=== PATIENT | female | born 1990 | race Two or more races ===

== ENCOUNTER 2024-05-24 02:10 | Emergency (ER) | payer MEDICAID, SELFPAY ==
[2024-05-24 02:11] VITALS: BMI 24.7
[2024-05-24 02:35] VITALS: BP 126/82; PULSE 95; RESP 16; TEMP 36.8; O2SAT 100
--- NOTE | 2024-05-24 02:50 | PD.EDEYE ---
ED Eye Problem RME/HPI General Chief complaint: Eye Problems Stated complaint: RIGHT EYE REDNESS, FEELS SOMETHING INSIDE EYE Time Seen by Provider: 05/24/24 02:49 Source: patient Arrival date/time: 05/24/24 02:10 33-year-old female presents emergency department complaining of right eye redness and foreign body sensation for over 1 month. Patient reports has been putting [id number] eyedrops to right eye with no improvement. Patient denies any vision changes. He denies any fever, chills, cough, sore throat, shortness of breath, ear pain, or any other associated symptom. Mode of arrival: ambulatory Limitations: no limitations Related Data Home Medications ?Medication ?Instructions ?Recorded ?Confirmed prenat.vits,ama,[id number] 1 tab PO QDAY 07/01/20 07/01/20 Previous Rx's ?Medication ?Instructions ?Recorded docusate sodium 100 mg capsule 100 mg PO BID 30 days 07/03/20 (Colace) #60 caps ibuprofen 600 mg tablet 600 mg PO Q6H PRN fever or pain 30 07/03/20 days #60 tabs naproxen 500 mg tablet 500 mg PO BID PRN pain #30 tabs 12/11/23 ciprofloxacin HCl 0.3 % eye drops See Rx Instructions ophthalmic 03/31/24 (eye) .COMPLEX #10 mL erythromycin 5 mg/gram (0.5 %) eye 0.5 inch ophthalmic (eye) QID 10 05/24/24 ointment days #3.5 grams Allergies Allergy/AdvReac Type Severity Reaction Status Date / Time No Known Allergies Allergy Verified 05/24/24 02:11 Review of Systems Review of Systems Systems Reviewed: All systems reviewed, normal except as documented Constitutional Constitutional: Reports system reviewed and no additional complaints, except as documented, Denies body ache(s), Denies chills and Denies fever(s) Eyes Eyes: Reports system reviewed and no additional complaints, except as documented, Denies change in vision, Reports eye discharge, Reports irritation and Reports itchy eyes ENT Ears, Nose, Mouth, and Throat: Reports system reviewed and no additional complaints, except as documented, Denies disequilibrium, Denies dizziness, Denies sore throat and Denies vertigo Cardiovascular Cardiovascular: Reports system reviewed and no additional complaints, except as documented, Denies chest pain and Denies dyspnea Respiratory Respiratory: Reports system reviewed and no additional complaints, except as documented, Denies chest congestion, Denies cough and Denies dyspnea Gastrointestinal Gastrointestinal: Reports system reviewed and no additional complaints, except as documented, Denies abdominal pain, Denies nausea and Denies vomiting Musculoskeletal Musculoskeletal: Reports system reviewed and no additional complaints, except as documented, Denies abnormal gait and Denies arthralgias Integumentary/Breasts Skin/Breast: Reports system reviewed and no additional complaints, except as documented, Denies erythema, Denies rash and Denies wounds Neurologic Neurologic: Reports system reviewed and no additional complaints, except as documented, Denies abnormal gait, Denies disequilibrium, Denies dizziness and Denies vertigo Allergic/Immunologic Allergic/Immunologic: Reports itchy eyes Past Medical History Past Medical History NEUROLOGIC: Positive Neurological Disorders; Negative Seizures CARDIAC: Negative Cardiac Disorders or Congestive Heart Failure RESPIRATORY: Negative Chronic Obstructive Pulmonary Disease (COPD) or Asthma GASTROINTESTINAL: Negative Gastrointestinal Disorders GENITOURINARY: Negative Genitourinary Disorders or Renal Disease MUSCULOSKELETAL: Positive Musculoskeletal Disorders and Scoliosis ENDOCRINE: Negative Endocrine Disorders, Diabetes Mellitus Type 1 or Diabetes Mellitus Type 2 HEMATOLOGIC: Negative Blood Disorders or Sickle Cell Disease OTHER HISTORY: Positive Hospitalization (PREVIOUS CHILDBIRTH) and Blood Transfusions; Negative Blood Transfusion Reaction or Anesthesia Reactions Family History FAMILY HISTORY: Negative Family Psychiatric Problems, Family Respiratory Disorders, Family Cardiac Disorders or Family Gastrointestinal Problems Surgical History SURGICAL: Positive Section Social History SMOKING STATUS: Never smoker ED Exam General Limitations: Present no limitations General appearance: Present alert and in no apparent distress Head Head exam: Present atraumatic Eye Eye exam: Present normal appearance, PERRL, EOMI, scleral icterus and conjunctival injection Expanded Eye Exam Eyelids: right: swelling eyelids Pupils: Bilateral: regular, round, reactive and size (4) Sclera/Conjunctival: right: injection and exudate ENT ENT exam: Present normal exam, normal oropharynx and mucous membranes moist Neck Neck exam: Present normal inspection, full ROM and trachea midline Chest Chest inspection: Present normal inspection and symmetric chest wall rise Respiratory Respiratory exam: Present normal lung sounds bilaterally Cardiovascular Cardiovascular exam: Present regular rate, normal rhythm and normal heart sounds Abdominal Exam Abdominal exam: Present soft and normal bowel sounds Extremities Exam Extremities exam: Present normal inspection and full ROM Back Exam Back exam: Present normal inspection and full ROM Neurological Exam Neurological exam: Present alert, oriented X3 and CN II-XII intact Psychiatric Psychiatric exam: Present normal affect and normal mood Skin Skin exam: Present warm, dry, intact and normal color Course Quality Measures none Orders Category Date Time Status Bedside COVID-19 Antigen Test NOW Care 05/24/24 02:57 Completed Bedside Influenza A&B Antigen Test NOW Care 05/24/24 02:57 Completed Cancino Lamp to Bedside X1 Care 05/24/24 02:50 Completed Erythromycin Op Oint 0.5% Med 05/24/24 03:42 Discontinued 1 gm RIGHT EYE X1 ONE Fluorescein Sodium [[id number]-[id number]] Med 05/24/24 02:50 Discontinued 1 mg RIGHT EYE X1 ONE TETRACAINE Op Ana 0.5% [Pontocaine Op Ana 0.5%] Med 05/24/24 02:50 Discontinued 1 drop RIGHT EYE X1 ONE Vital Signs Vital signs: Vital Signs Temperature 98.3 F 05/24/24 02:35 Pulse Rate 95 05/24/24 02:35 Respiratory Rate 16 05/24/24 02:35 Blood Pressure 126/82 05/24/24 02:35 Pulse Oximetry (%) 100 05/24/24 02:35 Oxygen Delivery Method Room Air 05/24/24 02:35 100% room air within normal limits Procedures -ED Cancino Lamp Exam Right eye: Flourescein uptake:: Yes Cancino Lamp Findings: Corneal abrasion Eye MDM Narrative MDM Narrative:: 33-year-old female presents emergency department complaining of right eye redness and foreign body sensation for over 1 month. Patient reports has been putting [id number] eyedrops to right eye with no improvement. Patient denies any vision changes. He denies any fever, chills, cough, sore throat, shortness of breath, ear pain, or any other associated symptom. On exam right eye sclera is injected with yellow-colored drainage on lower eyelid. Cancino lamp exam no obvious foreign body seen but corneal abrasion observed. Patient reports no change in vision but does complain about itchiness and irritation. Patient discharged on erythromycin ointment. Instructed patient to have close follow-up with preschool assistant teacher in 24 to 48 hours. Instructed to also follow-up with primary care provider and return to emergency department immediately if any change in vision or worsening symptoms. Patient data External records reviewed:: [facility] previous records Clinical information provided by:: patient Social determinants that could affect healthcare access:: none Patient has the following chronic illnesses:: N/A How is presenting disease/condition affected by chronic disease/condition?: no chronic disease Evaluation data The following diagnostics were reviewed and interpreted by me:: lab results Lab and/or radiology exams considered but not ordered:: Ordered Interpretation Summary: Interpreted by me Medications / Prescriptions Medications or Prescriptions considered but not ordered:: Ordered Medication administrations:: Medication Administration History Discontinued Medications Erythromycin (Erythromycin Op Oint 0.5% 1 Gm Packet) 1 gm RIGHT EYE X1 ONE Stop: 05/24/24 03:43 Last Admin: 05/24/24 04:00 Dose: 1 gm Documented By: BRAYDEN Co-signed By: VAL Fluorescein Sodium (Fluorescein Sod 1 Mg Strp) 1 mg RIGHT EYE X1 ONE Stop: 05/24/24 02:51 Last Admin: 05/24/24 03:02 Dose: 1 mg Documented By: BRAYDEN Tetracaine HCl (Tetracaine Pf Op Ana 0.5% 4 Ml Drpette) 1 drop RIGHT EYE X1 ONE Stop: 05/24/24 02:51 Last Admin: 05/24/24 03:02 Dose: 1 drop Documented By: BRAYDEN Comments: GIVEN TO MEÑO KIDD FOR ADMINISTRATION Given Consultations Consultation(s) initiated? (list below): No Diagnosis Eye Problem Differential Diagnosis: corneal abrasion, conjunctivitis, acute iritis, periorbital cellulitis and corneal ulcer Most likely diagnosis given after review of the tests above:: Corneal abrasion Admission Indicated Admission indicated?: not indicated Admission Request Was there a request for admission?: No Disposition Plan Disposition Plan: Discharge Discharge Attestation Discharge Attestation: The patient and all family members were given an opportunity to ask questions and understood the discharge instructions. Discharge instructions specifically effects, indications for sooner follow up or return to the emergency department, and the expected course of current diagnosis. Patient condition: Stable Discharge Plan Plan Patient Disposition: HOME (Self Care) Disposition Comment: Stable Prescriptions/Referrals Prescriptions/Med Rec: New erythromycin 5 mg/gram (0.5 %) ointment 0.5 inch ophthalmic (eye) QID 10 Days Qty: 3.5 0RF No Action prenat.vits,ama,[id number]-[id number] Tablet 1 tab PO QDAY ibuprofen 600 mg tablet 600 mg PO Q6H MDD 4 PRN (Reason: fever or pain) 30 Days Qty: 60 1RF docusate sodium [Colace] 100 mg capsule 100 mg PO BID MDD 2 30 Days Qty: 60 1RF ciprofloxacin HCl 0.3 % drops See Rx Instructions .ROUTE .COMPLEX Qty: 10 0RF Rx Instructions: put 1-2 drps in affected eye(s) every 2hr up to 8 times/day x2days; then 4 times/day x5days naproxen 500 mg tablet 500 mg PO BID PRN (Reason: pain) Qty: 30 0RF Problem List Clinical Impression: Corneal abrasion, right Patient/Caregiver Discharge Instructions Education Materials: ED Corneal Abrasion Additional Instructions: Apply medication as prescribed. Follow-up with preschool assistant teacher in 24 to 48 hours. Follow-up with primary care provider upon discharge. Return to the emergency department for any worsening symptoms or as needed. Print Language: Togolese Stand Alone Forms: Mary Award Info., Patient Portal Info Letter Attestation Attestation The patient was seen by the midlevel practitioner. I, the co-signing physician, was present during the entire ER visit. While I did not physically examine the patient, I was available for consultation as needed.
[2024-05-24] MEDS: FLUORESCEIN SOD 1 MG STRP RIGHT EYE (03:02)
[2024-05-24] MEDS: TETRACAINE PF OP SOL 0.5% 4 ML DRPETTE 1 DROP RIGHT EYE (03:02)
[2024-05-24] MEDS: Erythromycin Op Oint 0.5% 1 GM PACKET RIGHT EYE (04:00)
== END 2024-05-24 04:05 | disposition home or self-care (01) ==
LOC: SERX 04:10
PROVIDERS: Emergency Provider Emergency Medicine; PCP Family Medicine
DX: S05.01XA Injury of conjunctiva and corneal abrasion without foreign body, right eye, initial encounter (principal); X58.XXXA Exposure to other specified factors, initial encounter
CPT/HCPCS: 87400; 87811; 99283; A9270

== ENCOUNTER 2024-08-09 11:42 | Emergency (ER) | payer MEDICAID, SELFPAY ==
--- NOTE | 2024-08-09 12:39 | PC.NURSE ---
CALLED PT BACK, NO ANSWER AT THIS TIME
--- NOTE | 2024-08-09 13:05 | PC.NURSE ---
CALLED PT BACK, NO ANSWER AT THIS TIME
--- NOTE | 2024-08-09 14:04 | PC.NURSE ---
no answer when called for vital signs
== END 2024-08-09 15:24 | disposition left against medical advice (07) ==
PROVIDERS: Emergency Provider Emergency Medicine
DX: Z53.21 Procedure and treatment not carried out due to patient leaving prior to being seen by health care provider (principal)
CPT/HCPCS: 99281; 99283

== ENCOUNTER 2024-08-11 17:48 | Emergency (ER) | payer MEDICAID, SELFPAY ==
[2024-08-11 18:05] VITALS: BP 120/83; PULSE 87; RESP 16; TEMP 36.8; O2SAT 99; BMI 22.3
--- NOTE | 2024-08-11 18:19 | EDNOTE_ITS ---
ED Wound/Laceration-RME/HPI General Chief Complaint: Wound Recheck / Suture Removal Stated Complaint: REMOVE PACKING FROM RIGHT ARMPIT WOUND Time Seen by Provider: 08/11/24 18:17 Arrival date/time: 08/11/24 17:48 34F with no significant PMH presents to ED with needing to get packing removed s/p abscess I&D 2 days ago. Patient has been taking her ABX. Limitations: no limitations Related Data Home Medications ?Medication ?Instructions ?Recorded ?Confirmed prenat.vits,ama,xks-[id number]-tkbij 1 tab PO QDAY 07/01/20 07/01/20 Previous Rx's ?Medication ?Instructions ?Recorded docusate sodium 100 mg capsule 100 mg PO BID postpartu m 30 days 07/03/20 (Colace) #60 caps ibuprofen 600 mg tablet 600 mg PO Q6H PRN fever or p ain 30 07/03/20 days #60 tabs naproxen 500 mg tablet 500 mg PO BID PRN pain #30 t abs 12/11/23 ciprofloxacin HCl 0.3 % eye drops See Rx Instructions ophthalmic 03/31/24 (eye) .COMPLEX #10 mL sulfamethoxazole 800 1 tab PO BID 7 days #14 tabs 08/09/24 mg-trimethoprim 160 mg tablet (Bactrim DS) Allergies Allergy/AdvReac Type Severity Reaction Status Date / Time No Known Allergies Allergy Verified 08/11/24 17:49 Review of Systems Review of Systems Systems Reviewed: All systems reviewed, normal except as documented Constitutional Constitutional: Reports system reviewed and no additional complaints, except as documented, Denies fever(s) and Denies headache(s) ENT Ears, Nose, Mouth, and Throat: Denies disequilibrium and Denies headache(s) Cardiovascular Cardiovascular: Reports system reviewed and no additional complaints, except as documented, Denies chest pain and Denies dyspnea Respiratory Respiratory: Reports system reviewed and no additional complaints, except as documented, Denies cough and Denies dyspnea Gastrointestinal Gastrointestinal: Reports system reviewed and no additional complaints, except as documented, Denies abdominal pain, Denies nausea and Denies vomiting Neurologic Neurologic: Reports system reviewed and no additional complaints, except as documented, Denies confusion, Denies disequilibrium and Denies headache(s) Psychiatric Psychiatric: Denies confusion Past Medical History Past Medical History NEUROLOGIC: Positive Neurological Disorders; Negative Seizures CARDIAC: Negative Cardiac Disorders or Congestive Heart Failure RESPIRATORY: Negative Chronic Obstructive Pulmonary Disease (COPD) or Asthma GASTROINTESTINAL: Negative Gastrointestinal Disorders GENITOURINARY: Negative Genitourinary Disorders or Renal Disease MUSCULOSKELETAL: Positive Musculoskeletal Disorders and Scoliosis ENDOCRINE: Negative Endocrine Disorders, Diabetes Mellitus Type 1 or Diabetes Mellitus Type 2 HEMATOLOGIC: Negative Blood Disorders or Sickle Cell Disease OTHER HISTORY: Positive Hospitalization (PREVIOUS CHILDBIRTH) and Blood Transfusions; Negative Blood Transfusion Reaction or Anesthesia Reactions Family History FAMILY HISTORY: Negative Family Psychiatric Problems, Family Respiratory Disorders, Family Cardiac Disorders or Family Gastrointestinal Problems Surgical History SURGICAL: Positive Section Social History SMOKING STATUS: Never smoker ED Exam General Limitations: Present no limitations General appearance: Present alert and in no apparent distress Head Head exam: Present atraumatic Eye Eye exam: Present normal appearance, PERRL and EOMI ENT ENT exam: Present normal exam, normal oropharynx and mucous membranes moist Neck Neck exam: Present normal inspection, full ROM and trachea midline Chest Chest inspection: Present normal inspection and symmetric chest wall rise Respiratory Respiratory exam: Present normal lung sounds bilaterally Cardiovascular Cardiovascular exam: Present regular rate, normal rhythm and normal heart sounds Abdominal Exam Abdominal exam: Present soft and normal bowel sounds Extremities Exam Extremities exam: Present full ROM Expanded Upper Extremity Exam Shoulder exam: Present other (R armpit open wound from I&D) Back Exam Back exam: Present normal inspection and full ROM Neurological Exam Neurological exam: Present alert, oriented X3 and CN II-XII intact Psychiatric Psychiatric exam: Present normal affect and normal mood Skin Skin exam: Present warm, dry, intact and normal color Course Quality Measures none Orders Category Date Time Status Wound Care NOW Care 08/11/24 18:17 Active Vital Signs Vital signs: Vital Signs Temperature 98.2 F 08/11/24 18:05 Pulse Rate 87 08/11/24 18:05 Respiratory Rate 16 08/11/24 18:05 Blood Pressure 120/83 08/11/24 18:05 Pulse Oximetry (%) 99 08/11/24 18:05 Oxygen Delivery Method Room Air 08/11/24 18:05 O2 at 99% on RA and WNLs Wound / Laceration MDM Narrative MDM Narrative:: 34F with no significant PMH presents to ED with needing to get packing removed s/p abscess I&D 2 days ago. Patient has been taking her ABX. Physical exam reveals open wound from I&D on R armpit area with only minor discharge. No additional discharge with expression. Patient is afebrile, calm, and alert. Packing removed. Wound cleaned and re-bandaged. Counseled to finish ABX. Patient data External records reviewed:: [facility] previous records Clinical information provided by:: patient Social determinants that could affect healthcare access:: none Patient has the following chronic illnesses:: none How is presenting disease/condition affected by chronic disease/condition?: no chronic disease Evaluation data The following diagnostics were reviewed and interpreted by me:: other (specify) (none) Lab and/or radiology exams considered but not ordered:: not ordered Interpretation Summary: n/a Medications / Prescriptions Medications or Prescriptions considered but not ordered:: not ordered Medication administrations:: n/a Consultations Consultation(s) initiated? (list below): No Diagnosis Wound Differential Diagnosis: laceration, abscess, abrasion, avulsion of skin and other (wound check) Most likely diagnosis given after review of the tests above:: wound check Admission Indicated Admission indicated?: not indicated Admission Request Was there a request for admission?: No Disposition Plan Disposition Plan: Discharge Discharge Attestation Discharge Attestation: The patient and all family members were given an opportunity to ask questions and understood the discharge instructions. Discharge instructions specifically effects, indications for sooner follow up or return to the emergency department, and the expected course of current diagnosis. Patient condition: Stable Discharge Plan Plan Patient Disposition: HOME (Self Care) Disposition Comment: Stable Prescriptions/Referrals Prescriptions/Med Rec: No Action prenat.vits,ama,[id number]-gbfio Tablet 1 tab PO QDAY ibuprofen 600 mg tablet 600 mg PO Q6H MDD 4 PRN (Reason: fever or pain) 30 Days Qty: 60 1RF docusate sodium [Colace] 100 mg capsule 100 mg PO BID MDD 2 30 Days Qty: 60 1RF ciprofloxacin HCl 0.3 % drops See Rx Instructions .ROUTE .COMPLEX Qty: 10 0RF Rx Instructions: put 1-2 drps in affected eye(s) every 2hr up to 8 times/day x2days; then 4 times/day x5days naproxen 500 mg tablet 500 mg PO BID PRN (Reason: pain) Qty: 30 0RF sulfamethoxazole-trimethoprim [Bactrim DS] 800-160 mg tablet 1 tab PO BID 7 Days Qty: 14 0RF Problem List Clinical Impression: Wound check, abscess Patient/Caregiver Discharge Instructions Education Materials: ED Wound Care Additional Instructions: Please follow-up with PCP within 24-48 hours and return immediately if symptoms worsen. Print Language: Bolivian Stand Alone Forms: Patient Portal Info Letter PA/COUNSELOR AID Supervising Physician PA/COUNSELOR AID Supervising Physician: Dr. Weathers
== END 2024-08-11 18:58 | disposition home or self-care (01) ==
LOC: SERX 19:26
PROVIDERS: Emergency Provider Emergency Medicine
DX: L02.411 Cutaneous abscess of right axilla (principal)
CPT/HCPCS: 99282